=== PATIENT | male | born 1995 | race Caucasian/White ===

== ENCOUNTER 2017-03-03 19:33 | Emergency (ER) | payer BC ==
[2017-03-03 20:07] VITALS: BP 120/65
--- NOTE | 2017-03-03 20:34 | UC ---
Throat Pain/Nasal Lit HPI - HPI Summary HPI Summary: pt presents with c/o sore throat X 3 days. Pt has history of tonsillitis - History of Current Complaint Chief Complaint: UCGeneralIllness Stated Complaint: SORE THROAT Hx Obtained From: Patient Onset/Duration: Gradual Onset, Lasting Days Severity: Moderate Associated Signs & Symptoms: Positive: Dysphagia - Allergies/Home Medications Allergies/Adverse Reactions: Allergies Allergy/AdvReac Type Severity Reaction Status Date / Time No Known Allergies Allergy Verified 03/03/17 20:07 PMH/Surg Hx/FS Hx/Imm Hx Previously Healthy: Yes - has history chronic tonsillitis - Surgical History Surgical History: Yes Surgery Procedure, Year, and Place: eaustacian tubes when child - Family History Known Family History: Positive: Other - positive [facility] for URI - Social History Alcohol Use: Occasionally Substance Use Type: None Smoking Status (MU): Never Smoked Tobacco Review of Systems Constitutional: Fatigue Skin: Negative Eyes: Negative ENT: Sore Throat Respiratory: Negative Cardiovascular: Negative Gastrointestinal: Negative Genitourinary: Negative Motor: Negative Neurovascular: Negative Musculoskeletal: Negative Neurological: Negative Psychological: Negative All Other Systems Reviewed And Are Negative: Yes Physical Exam Triage Information Reviewed: Yes Appearance: Well-Appearing Vital Signs: Initial Vital Signs Temp 97.9 F 03/03/17 20:00 Pulse 77 03/03/17 20:00 Resp 18 03/03/17 20:00 BP 120/65 03/03/17 20:00 Pulse Ox 100 03/03/17 20:00 Eye Exam: Normal ENT: Positive: Pharyngeal erythema, Tonsillar swelling Neck exam: Other Neck: Positive: Enlarged Nodes @ - submandibular Respiratory Exam: Normal Musculoskeletal Exam: Normal Neurological Exam: Normal Psychological Exam: Normal Skin Exam: Normal Throat Pain/Nasal Course/Dx - Differential Dx/Diagnosis Differential Diagnosis/HQI/PQRI: Pharyngitis, Tonsillitis Provider Diagnoses: tonsillitis Discharge - Discharge Plan Condition: Stable Disposition: HOME Prescriptions: Amoxicillin (*) [Amoxicillin 875 MG (*)] 875 mg PO Q12H #20 tab Patient Education Materials: Tonsillitis (ED) Referrals: Kevin Campos DO [Primary Care Provider] - If Needed
--- NOTE | 2017-03-03 20:40 | UC ---
Throat Pain/Nasal Lit HPI - History of Current Complaint Chief Complaint: UCGeneralIllness Stated Complaint: SORE THROAT Time Seen by Provider: 03/03/17 20:34 - Allergies/Home Medications Allergies/Adverse Reactions: Allergies Allergy/AdvReac Type Severity Reaction Status Date / Time No Known Allergies Allergy Verified 03/03/17 20:07 Home Medications: Home Medications NK [No Home Medications Reported] 03/03/17 [History Confirmed 03/03/17] PMH/Surg Hx/FS Hx/Imm Hx - Surgical History Surgical History: Yes Surgery Procedure, Year, and Place: eaustacian tubes when child - Social History Alcohol Use: Occasionally Substance Use Type: None Smoking Status (MU): Never Smoked Tobacco Physical Exam Vital Signs: Initial Vital Signs Temp 97.9 F 03/03/17 20:00 Pulse 77 03/03/17 20:00 Resp 18 03/03/17 20:00 BP 120/65 03/03/17 20:00 Pulse Ox 100 03/03/17 20:00
[2017-03-03] MEDS ORDERED: Amoxicillin CAP* 500 MG PO ONE (20:51)
== END 2017-03-03 21:01 | disposition home or self-care (01) ==
LOC: UCCORT 19:33
DX: J03.90 Acute tonsillitis, unspecified (principal)
CPT/HCPCS: 87651; 99202; A9270-GY; G0463